=== PATIENT | male | born 1985 | race Caucasian/White ===

== ENCOUNTER 2016-09-27 08:43 | Emergency (ER) | payer MEDICAID ==
[2016-09-27 09:03] VITALS: BP 146/88; PULSE 84; RESP 18; TEMP 97.5; O2SAT 97
[2016-09-27] MEDS ORDERED: IBUPROFEN 600 MG TAB PO ONE (09:03)
--- NOTE | 2016-09-27 09:58 | UCPHY ---
H & P Time Seen by Provider: 09/27/16 09:32 Patient Type: New HPI/ROS: This patient is 10 days of sinus symptoms with 3 days of increasing left maxillary sinus pain that is described as moderate intensity worse when he bends forward. He also feels slight feeling of pressure in the nail left orbit. He is anxious about this because of a prior orbital fracture in the past. He notes partial improvement from [id number]-[id number] analgesics with no other exacerbating factors. ROS: No high fevers or chills. No vision changes. He reports no diplopia. No other HEENT complaints. Pulmonary: No cough. Neuro: No numbness tingling focal weakness or generalized headache. 7 point ROS is otherwise negative. Past Medical/Surgical History: Orbital fracture. 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 No surgical intervention. Smoking Status: Never smoked Physical Exam: Physical Exam Vital signs are normal. General: No acute distress HEENT: Nose: Yellow discharge bilaterally. Mild swollen turbinates bilaterally. Left frontal sinus tenderness to percussion. Ears: External canals and tympanic membranes are clear with no erythema or abnormal findings bilaterally. Oropharynx: No erythema or exudates. No dysphonia. No drooling or stridor. Eyes: No proptosis. No diplopia Pupils equal and react to light. Extraocular motions are intact. Lungs: Clear to auscultation bilaterally with no rales, rhonchi or wheeze. No respiratory distress. Cardiac: Regular rate and rhythm with no murmur gallop or rub Skin: No rash or pallor. Neuro: Alert with no focal deficits noted. Initial differential diagnosis: Viral rhinosinusitis versus bacterial sinusitis. Constitutional: Initial Vital Signs Temperature (C) 36.4 C 09/27/16 08:52 Heart Rate 84 09/27/16 08:52 Respiratory Rate 18 09/27/16 08:52 Blood Pressure 146/88 H 09/27/16 08:52 O2 Sat (%) 97 09/27/16 08:52 O2 Delivery Mode Room Air Allergies/Adverse Reactions: No Known Allergies Allergy (Unverified 09/27/16 08:59) Home Medications: Medication Instructions Recorded Azithromycin [Zithromax] 250 mg PO DAILY #6 tab 09/27/16 Fluticasone Nasal [Flonase Nasal 2 sprays NASAL DAILY #1 mdi 09/27/16 [place]] Medical Decision Making ED Course/Re-evaluation: This patient appears well clinically without evidence of periorbital or orbital cellulitis. I spent some time counseled him regarding this issue was anxious due to his previous orbital injury. He currently has no evidence of entrapment or other concerning findings. Clinically I think it is likely is a viral rhinosinusitis but given that he has had symptoms for 10 days with increasing discomfort will cover him with Zithromax and start him on Flonase. He will follow up with ENT for any lingering symptoms despite treatment plan. - Data Points Medications Given: Discontinued Medications Ibuprofen (Motrin) 600 mg PO EDNOW ONE Stop: 09/27/16 09:04 Last Admin: 09/27/16 09:05 Dose: 600 mg Departure - Departure Disposition: Home, Routine, Self-Care Clinical Impression: Maxillary sinusitis, acute Qualifiers: Recurrence: not specified as recurrent Qualified Code(s): J01.00 - Acute maxillary sinusitis, unspecified Condition: Good Instructions: Sinusitis (ED) Additional Instructions: Diagnosis: Maxillary sinusitis Plan: Humidifier Guaifenesin Flonase steroid nasal spray Zithromax Ibuprofen-600 mg per 6 hours as needed for pain or swelling Tylenol in addition if needed for discomfort Your symptoms should improve over the next 5-7 days. If you're not improving, follow up with Dr. Summers-Ear Nose Throat specialist. Referrals: NONE *PRIMARY CARE P,. [Primary Care Provider] - As per Instructions Naomi Summers MD [Medical Doctor] - As per Instructions Prescriptions: Azithromycin [Zithromax] 250 mg PO DAILY #6 tab Fluticasone Nasal [Flonase Nasal [place]] 2 sprays NASAL DAILY #1 mdi - PQRS PQRS Measurement: NA
== END 2016-09-27 10:07 | disposition home or self-care (01) ==
LOC: CED 08:43
DX: J01.00 Acute maxillary sinusitis, unspecified (principal)
CPT/HCPCS: 99203-PO; G0463-PO